=== PATIENT | male | born 1995 ===

== ENCOUNTER 2017-05-11 19:37 | Inpatient (IN) | payer SELFPAY ==
[2017-05-11] MEDS ORDERED: Sodium Chloride 0.9% 1,000 ML IV ONE (20:51)
[2017-05-11] MEDS ORDERED: Sodium Chloride 0.9% 1,000 ML ONE (20:57)
[2017-05-11 21:02] LABS: BASO # 0.1 K/uL (0.0-0.2); BASO % 0.4 % (0.0-2.0); HEMATOCRIT 45.8 % (35.0-51.0); LYMPH # 1.5 K/uL (1.0-4.3); MEAN CELL VOLUME 84.2 fL (80.0-94.0); MEAN CORPUSCULAR HEMOGLOBIN 27.6 pg (27.0-31.0); MEAN CORPUSCULAR HGB CONC 32.8 g/dL (33.0-37.0); MEAN PLATELET VOLUME 9.5 fL (7.2-11.7); MONO # 0.9 K/uL (0.0-0.8); MONO % 4.5 % (0.0-10.0); PLATELET COUNT 304 K/uL (130-400); RED CELL DISTRIBUTION WIDTH 13.6 % (11.5-14.5); WHITE BLOOD COUNT 20.8 K/uL (4.8-10.8)
[2017-05-11 21:09] LABS: CHLORIDE 102 mmol/L (98-107); POTASSIUM 3.9 mmol/L (3.6-5.2); RBC URINE 1 /hpf (0-3); SODIUM 141 mmol/L (132-148); URINE BILIRUBIN NEGATIVE (NEGATIVE); URINE BLOOD NEGATIVE (NEGATIVE); URINE COLOR Yellow (YELLOW); URINE GLUCOSE (UA) NORMAL (Normal); URINE KETONE NEGATIVE (NEGATIVE); URINE LEUKOCYTE ESTERASE NEG Leu/uL (Negative); URINE PROTEIN NEGATIVE (NEGATIVE); URINE UROBILINOGEN NORMAL mg/dL (0.2-1.0); WBC URINE < 1 /hpf (0-5)
[2017-05-11 21:11] LABS: BILIRUBIN,TOTAL 0.8 mg/dL (0.2-1.3); CARBON DIOXIDE 23 mmol/L (22-30); GFR AFRICAN-AMERICAN > 60
[2017-05-11 21:12] LABS: ALB/GLOB RATIO 1.6 (1.0-2.1); ALKALINE PHOSPHATASE 82 U/L (38-126); ALT/SGPT 41 U/L (21-72); AST/SGOT 32 U/L (17-59); BLOOD UREA NITROGEN 14 mg/dL (9-20); CALCIUM 9.4 mg/dl (8.6-10.4); GLUCOSE,RANDOM 112 mg/dL (75-110)
[2017-05-11] MEDS ORDERED: Morphine 4 MG/ML VIAL ONE ×2 (21:27→23:02)
[2017-05-11] MEDS ORDERED: Iohexol 350mg/ml 100 ML ONE (21:48)
[2017-05-11 22:43] LABS: NEUTROPHIL 83 % (50-75); REACTIVE LYMPHOCYTES 4 % (0-0); TOTAL CELLS COUNTED 100
[2017-05-11] MEDS ORDERED: Piperacillin/Tazobact 3.375 gm 100 ML IVPB STA (22:43)
[2017-05-11 22:45] LABS: LARGE PLATELETS PRESENT; SMUDGE CELLS PRESENT
--- NOTE | 2017-05-11 22:49 | C.PDOC ---
Time Seen by Provider: 05/11/17 20:41 Chief Complaint (Nursing): Abdominal Pain History Per: Patient Onset/Duration Of Symptoms: Hrs (since this morning) Current Symptoms Are (Timing): Still Present Severity: Moderate Location Of Pain/Discomfort: RLQ, LLQ, Periumbilical, Suprapubic Radiation Of Pain To:: None Quality Of Discomfort: "Pain" Associated Symptoms: Nausea, Vomiting Alleviating Factors: None Last Bowel Movement: Today Additional History Per: Prior Records Past Medical History Reviewed: Historical Data, Nursing Documentation, Vital Signs Vital Signs: Last Vital Signs Temp 98.9 F 05/11/17 21:37 Pulse 91 H 05/11/17 19:51 Resp 16 05/11/17 19:51 BP 135/67 05/11/17 21:37 Pulse Ox 99 05/11/17 19:51 - Medical History PMH: No Chronic Diseases Surgical History: No Surg Hx Family History: States: Unknown Family Hx - Social History Hx Alcohol Use: No Hx Substance Use: No - Immunization History Hx Tetanus Toxoid Vaccination: No Hx Influenza Vaccination: No Hx Pneumococcal Vaccination: No Review Of Systems Except As Marked, All Systems Reviewed And Found Negative. Constitutional: Negative for: Weakness Cardiovascular: Negative for: Chest Pain Respiratory: Negative for: Shortness of Breath Gastrointestinal: Positive for: Nausea, Vomiting, Abdominal Pain. Negative for : Diarrhea, Constipation, Melena, Hematochezia, Hematemesis Genitourinary: Negative for: Dysuria, Scrotal Pain Musculoskeletal: Negative for: Neck Pain, Back Pain Skin: Negative for: Rash Neurological: Negative for: Weakness, Numbness Physical Exam - Physical Exam Appears: Non-toxic, No Acute Distress Skin: Normal Color, Warm, Dry, No Rash Head: Atraumatic, Normacephalic Eye(s): bilateral: Normal Inspection, PERRL, EOMI Neck: Normal ROM, Supple Cardiovascular: Rhythm Regular Respiratory: Normal Breath Sounds, No Accessory Muscle Use Gastrointestinal/Abdominal: Soft, Tenderness (lower abdomen), Guarding Back: No CVA Tenderness Male Genital: No Testicular Tenderness, No Testicular Swelling, No Inguinal Tenderness, No Inguinal Swelling, No Scrotal Swelling Extremity: Normal ROM Neurological/Psych: Oriented x3, Normal Motor, Normal Sensation ED Course And Treatment - Laboratory Results Result Diagrams: 05/11/17 20:56 05/11/17 20:56 Lab Interpretation: Abnormal Interpretation Of Abnormal: Leukocytosis with left shift O2 Sat by Pulse Oximetry: 99 Pulse Ox Interpretation: Normal - CT Scan/US CT abd/pelv Other Rad Studies (CT/US): Read By Radiologist, Radiology Report Reviewed CT/US Interpretation: Positive appendicitis Progress - Interventions Interventions:: Observation, Intravenous fluid - Medications Administered Intravenous: Antiemetic, H-2 nilo, Opiate - Data Reviewed Data Reviewed: Lab, Diagnostic imaging, Old records - Patient Status Patient status: Partially improved - Continuity of Care Discussed patient case with:: Patient, Family-HIPPA compliant, ED Nurse Discussed pt. case with risk management consultant/specialty: General Surgery - Patient Plan Patient Plan: Admission Disposition Discussed With : Isabella Quinones (Surgery) Comment: She accepted pt on her service. Pt also signed out to the surgical oncologist media sales consultant. Doctor Will See Patient In The: Hospital Counseled Patient/Family Regarding: Studies Performed, Diagnosis - Disposition Disposition: HOSPITALIZED Disposition Time: 22:52 Condition: GUARDED - Clinical Impression Clinical Impression: Acute appendicitis
[2017-05-11] MEDS ORDERED: Piperacillin/Tazobact 3.375 gm 100 ML IVPB ONE (23:02)
[2017-05-11 23:33] LABS: INR 1.1
--- NOTE | 2017-05-12 00:44 | CP.PCM.HP ---
History of Present Illness - History of Present Illness History of Present Illness: H&P Surgery- Dr. Quinones 22M no significant PMH presented to [facility] ED with worsening abdominal pain that started this morning localized to the midepigastrum and migrated to the RLQ. Pt had a similar episode 8mo ago that spontaneously resolved. Pt had 4 episodes of non-bloody non-bilious vomiting since this morning, no episodes of diarrhea. Pt denies fevers, CP/SOB, numbness or tingling in the extremities. PMH: none PSH: none ALL: NKDA Present on Admission - Present on Admission Any Indicators Present on Admission: No Review of Systems - Review of Systems All systems: reviewed and no additional remarkable complaints except - Constitutional Constitutional: As Per HPI Past Patient History - Past Social History Smoking Status: Never Smoked - PSYCHIATRIC Hx Substance Use: No Meds Allergies/Adverse Reactions: Allergies Allergy/AdvReac Type Severity Reaction Status Date / Time No Known Allergies Allergy Verified 05/11/17 19:54 Physical Exam - Constitutional Appears: No Acute Distress - Head Exam Head Exam: ATRAUMATIC - Eye Exam Eye Exam: EOMI - Respiratory Exam Respiratory Exam: NORMAL BREATHING PATTERN. absent: Accessory Muscle Use, Rales , Rhonchi - Cardiovascular Exam Cardiovascular Exam: +S1, +S2 - GI/Abdominal Exam GI & Abdominal Exam: Guarding, Soft, Tenderness. absent: Distended, Hernia, Rigid Additional comments: TTP +rovsings + mcburney + rebound tenderness - obturator sign - Neurological Exam Neurological exam: Alert, Oriented x3 - Skin Skin Exam: Intact, Normal Color Results - Vital Signs Recent Vital Signs: Last Vital Signs Temp 99.1 F 05/11/17 23:28 Pulse 89 05/11/17 23:28 Resp 20 05/11/17 23:28 BP 138/74 05/11/17 23:28 Pulse Ox 98 05/11/17 23:28 - Labs Result Diagrams: 05/11/17 20:56 05/11/17 20:56 Assessment & Plan - Assessment and Plan (Free Text) Assessment: 22M RLQ pain Plan: - NPO - GI/DVTppx - IVF/abx - Pain control - plan for surgery - further recs per Dr. Joni Carmen PGY1
[2017-05-12] MEDS: HYDROmorphone 1 mg/ml ISec IVP PRN ×2 (01:13→06:45)
[2017-05-12] MEDS: Lactated Ringer's 1,000 ML IV SCH ×2 (01:17→09:47)
[2017-05-12] MEDS: Piperacillin/Tazobact 3.375 GM in Sodium Chloride 100 ML IVPB SCH ×3 (06:43→18:25)
[2017-05-12 08:10] LABS: BASO # 0.1 K/uL (0.0-0.2); BASO % 0.5 % (0.0-2.0); EOS % 0.1 % (0.0-4.0); HEMATOCRIT 41.9 % (35.0-51.0); LYMPH # 2.7 K/uL (1.0-4.3); LYMPH % 14.3 % (20.0-40.0); MEAN CELL VOLUME 83.7 fL (80.0-94.0); MEAN CORPUSCULAR HEMOGLOBIN 27.6 pg (27.0-31.0); MEAN PLATELET VOLUME 9.5 fL (7.2-11.7); MONO # 1.6 K/uL (0.0-0.8); MONO % 8.3 % (0.0-10.0); NRBC % 0.1 % (0.0-2.0); RED CELL DISTRIBUTION WIDTH 13.8 % (11.5-14.5); WHITE BLOOD COUNT 18.7 K/uL (4.8-10.8)
--- NOTE | 2017-05-12 08:35 | CT ---
PROCEDURE: CT Abdomen and Pelvis with contrast HISTORY: abd pain, vomiting, Leukocytosis COMPARISON: None available. TECHNIQUE: Contrast dose: 100 mL Omnipaque 350 Radiation dose: Total exam DLP = 957.60 mGy-cm. This CT exam was performed using one or more of the following dose reduction techniques: Automated exposure control, adjustment of the mA and/or kV according to patient size, and/or use of iterative reconstruction technique. FINDINGS: LOWER THORAX: No visible consolidation, pleural effusion, or pneumothorax. LIVER: Unremarkable. GALLBLADDER AND BILE DUCTS: Unremarkable. PANCREAS: Unremarkable. SPLEEN: Unremarkable. ADRENALS: Unremarkable. KIDNEYS AND URETERS: The kidneys enhance symmetrically. No hydronephrosis or obstructing calculus identified. VASCULATURE: No aortic aneurysm. BOWEL: Stomach is nondistended. Lack of oral contrast limits evaluation for bowel pathology. Bowel loops appear within normal limits of caliber without evidence of obstruction. APPENDIX: Dilated fluid-filled appendix measures maximally 12 mm in diameter. No intraluminal air evident. Probable tiny calcifications are seen. Wall hyperemia noted. Mild adjacent inflammatory stranding. PERITONEUM: No significant free fluid. No definite free air. LYMPH NODES: No bulky adenopathy identified. BLADDER: Unremarkable. REPRODUCTIVE: Unremarkable. BONES: No acute fracture. OTHER FINDINGS: None. IMPRESSION: Dilated fluid-filled appendix measures maximally 12 mm in diameter. No intraluminal air evident. Probable tiny calcifications are seen. Wall hyperemia noted. Mild adjacent inflammatory stranding. Constellation of findings consistent with acute appendicitis. Correlate clinically.
[2017-05-12 08:56] LABS: CHLORIDE 103 mmol/L (98-107); POTASSIUM 3.6 mmol/L (3.6-5.2); SODIUM 139 mmol/L (132-148)
[2017-05-12 08:58] LABS: ALB/GLOB RATIO 1.5 (1.0-2.1); AST/SGOT 22 U/L (17-59); CARBON DIOXIDE 23 mmol/L (22-30); GFR AFRICAN-AMERICAN > 60; TOTAL PROTEIN 6.9 g/dL (6.3-8.3)
[2017-05-12 08:59] LABS: ALKALINE PHOSPHATASE 68 U/L (38-126); ALT/SGPT 35 U/L (21-72); BLOOD UREA NITROGEN 10 mg/dL (9-20); CALCIUM 8.7 mg/dl (8.6-10.4); GLUCOSE,RANDOM 97 mg/dL (75-110)
[2017-05-12] MEDS ORDERED: Lactated Ringer's 1,000 ML IV ONE ×2 (13:55→15:14)
[2017-05-12] MEDS ORDERED: Midazolam 2 MG/2 ML VIAL ONE (13:57)
[2017-05-12] MEDS ORDERED: Propofol 10 mg/ml Inj (20 ML) ONE (13:59)
[2017-05-12] MEDS ORDERED: Succinylcholine Chloride 20 mg/ml Syr (5 ml) IV ONE (14:00)
[2017-05-12] MEDS ORDERED: Rocuronium 10 mg/ml (5 ml) ONE (14:16)
[2017-05-12] MEDS ORDERED: Oxycodone/Acetaminophen 5/325 mg Tab PO PRN (15:14)
--- NOTE | 2017-05-12 15:21 | PCM.SURG1 ---
Surgeon's Initial Post Op Note - Surgeon's Notes Surgeon: Dr. Quinones Break Up Worker: Dr. Rangel PGY3, PGY1 Pre-Operative Diagnosis: Acute Appendicitis Operative Findings: Phlegmenous Appendicitis Post-Operative Diagnosis: As Above Operation Performed: laparoscopic appendectomy Specimen/Specimens Removed: appendix Estimated Blood Loss: EBL {In ML}: 5 Date of Surgery/Procedure: 05/12/17 Time of Surgery/Procedure: 14:15
[2017-05-12] MEDS ORDERED: Lactated Ringer's 1,000 ML IV SCH (15:30)
[2017-05-12] MEDS ORDERED: Sodium Chloride 0.9% 1,000 ML IV SCH (15:45)
--- NOTE | 2017-05-12 19:13 | CP.PCM.HP ---
Past Patient History - Past Medical History & Family History Past Medical History?: No - Past Social History Smoking Status: Never Smoked - MUSCULOSKELETAL/RHEUMATOLOGICAL Hx Falls: No - PSYCHIATRIC Hx Substance Use: No Meds Allergies/Adverse Reactions: Allergies Allergy/AdvReac Type Severity Reaction Status Date / Time No Known Allergies Allergy Verified 05/11/17 19:54 Physical Exam - Constitutional Appears: Well - Head Exam Head Exam: ATRAUMATIC, NORMAL INSPECTION, NORMOCEPHALIC - Eye Exam Eye Exam: EOMI, Normal appearance, PERRL Pupil Exam: NORMAL ACCOMODATION, PERRL - ENT Exam ENT Exam: Mucous Membranes Moist, Normal Exam - Neck Exam Neck exam: Positive for: Normal Inspection - Respiratory Exam Respiratory Exam: Decreased Breath Sounds - Cardiovascular Exam Cardiovascular Exam: REGULAR RHYTHM, +S1, +S2 - GI/Abdominal Exam GI & Abdominal Exam: Diminished Bowel Sounds, Soft - Rectal Exam Rectal Exam: Deferred Results - Vital Signs Recent Vital Signs: Last Vital Signs Temp 98.4 F 05/12/17 17:45 Pulse 85 05/12/17 17:45 Resp 20 05/12/17 17:45 BP 107/62 05/12/17 17:45 Pulse Ox 98 05/12/17 17:45 - Labs Result Diagrams: 05/12/17 08:01 05/12/17 08:01 Labs: Laboratory Results - last 24 hr 05/12/17 05/12/17 05/12/17 00:13 00:46 08:01 WBC 18.7 H RBC 5.00 Hgb 13.8 Hct 41.9 MCV 83.7 MCH 27.6 MCHC 33.0 RDW 13.8 Plt Count 270 MPV 9.5 Neut % (Auto) 76.8 H Lymph % (Auto) 14.3 L [place] % (Auto) 8.3 Eos % (Auto) 0.1 Baso % (Auto) 0.5 Neut # 14.3 H Lymph # 2.7 [place] # 1.6 H Eos # 0.0 Baso # 0.1 PT 11.9 INR 1.1 APTT 33 Sodium Potassium Chloride Carbon Dioxide Anion Gap BUN Creatinine Est GFR ( Amer) Est GFR (Non-Af Amer) Random Glucose Calcium Total Bilirubin AST ALT Alkaline Phosphatase Total Protein Albumin Globulin Albumin/Globulin Ratio Blood Type O POSITIVE Antibody Screen Negative 05/12/17 08:01 WBC RBC Hgb Hct MCV MCH MCHC RDW Plt Count MPV Neut % (Auto) Lymph % (Auto) [place] % (Auto) Eos % (Auto) Baso % (Auto) Neut # Lymph # [place] # Eos # Baso # PT INR APTT Sodium 139 Potassium 3.6 Chloride 103 Carbon Dioxide 23 Anion Gap 17 BUN 10 Creatinine 0.9 Est GFR ( Amer) > 60 Est GFR (Non-Af Amer) > 60 Random Glucose 97 Calcium 8.7 Total Bilirubin 1.0 AST 22 ALT 35 Alkaline Phosphatase 68 Total Protein 6.9 Albumin 4.1 Globulin 2.8 Albumin/Globulin Ratio 1.5 Blood Type Antibody Screen
[2017-05-13] MEDS: Piperacillin/Tazobact 3.375 GM in Sodium Chloride 100 ML IVPB SCH ×2 (00:41→05:36)
[2017-05-13 06:35] LABS: BASO # 0.1 K/uL (0.0-0.2); BASO % 0.4 % (0.0-2.0); EOS # 0.1 K/uL (0.0-0.7); EOS % 0.5 % (0.0-4.0); HEMATOCRIT 40.2 % (35.0-51.0); LYMPH % 19.8 % (20.0-40.0); MEAN CELL VOLUME 84.4 fL (80.0-94.0); MEAN CORPUSCULAR HEMOGLOBIN 28.2 pg (27.0-31.0); MEAN CORPUSCULAR HGB CONC 33.4 g/dL (33.0-37.0); MEAN PLATELET VOLUME 8.7 fL (7.2-11.7); MONO # 1.1 K/uL (0.0-0.8); MONO % 7.5 % (0.0-10.0); RED CELL DISTRIBUTION WIDTH 13.9 % (11.5-14.5); WHITE BLOOD COUNT 14.9 K/uL (4.8-10.8)
[2017-05-13 07:23] LABS: ALB/GLOB RATIO 1.1 (1.0-2.1); ALKALINE PHOSPHATASE 67 U/L (38-126); ALT/SGPT 36 U/L (21-72); AST/SGOT 20 U/L (17-59); BILIRUBIN,TOTAL 0.8 mg/dL (0.2-1.3); BLOOD UREA NITROGEN 7 mg/dL (9-20); CARBON DIOXIDE 27 mmol/L (22-30); CHLORIDE 102 mmol/L (98-107); GFR AFRICAN-AMERICAN > 60; GLUCOSE,RANDOM 98 mg/dL (75-110); POTASSIUM 3.7 mmol/L (3.6-5.2); SODIUM 142 mmol/L (132-148); TOTAL PROTEIN 6.7 g/dL (6.3-8.3)
--- NOTE | 2017-05-13 09:19 | CP.PCM.DIS ---
Provider - Provider Date of Admission: 05/11/17 23:15 Attending physician: Kendra Ruffin MD Time Spent in preparation of Discharge (in minutes): 10 Diagnosis - Discharge Diagnosis (1) Acute appendicitis Status: Resolved Hospital Course - Lab Results Lab Results: Most Recent Lab Values WBC 14.9 K/uL (4.8-10.8) H 05/13/17 06:18 RBC 4.76 Mil/uL (4.40-5.90) 05/13/17 06:18 Hgb 13.4 g/dL (12.0-18.0) 05/13/17 06:18 Hct 40.2 % (35.0-51.0) 05/13/17 06:18 MCV 84.4 fL (80.0-94.0) 05/13/17 06:18 MCH 28.2 pg (27.0-31.0) 05/13/17 06:18 MCHC 33.4 g/dL (33.0-37.0) 05/13/17 06:18 RDW 13.9 % (11.5-14.5) 05/13/17 06:18 Plt Count 254 K/uL (130-400) 05/13/17 06:18 MPV 8.7 fL (7.2-11.7) 05/13/17 06:18 Neut % (Auto) 71.8 % (50.0-75.0) 05/13/17 06:18 Lymph % (Auto) 19.8 % (20.0-40.0) L 05/13/17 06:18 [place] % (Auto) 7.5 % (0.0-10.0) 05/13/17 06:18 Eos % (Auto) 0.5 % (0.0-4.0) 05/13/17 06:18 Baso % (Auto) 0.4 % (0.0-2.0) 05/13/17 06:18 Neut # 10.7 K/uL (1.8-7.0) H 05/13/17 06:18 Lymph # 3.0 K/uL (1.0-4.3) 05/13/17 06:18 [place] # 1.1 K/uL (0.0-0.8) H 05/13/17 06:18 Eos # 0.1 K/uL (0.0-0.7) 05/13/17 06:18 Baso # 0.1 K/uL (0.0-0.2) 05/13/17 06:18 Neutrophils % (Manual) 83 % (50-75) H 05/11/17 20:56 Band Neutrophils % 4 % (0-2) H 05/11/17 20:56 Lymphocytes % (Manual) 6 % (20-40) L 05/11/17 20:56 Reactive Lymphs % 4 % (0-0) H 05/11/17 20:56 Monocytes % (Manual) 3 % (0-10) 05/11/17 20:56 Hypersegmented Polys Present 05/11/17 20:56 Smudge Cells Present 05/11/17 20:56 Toxic Granulation Present 05/11/17 20:56 Platelet Estimate Normal (NORMAL) 05/11/17 20:56 Large Platelets Present 05/11/17 20:56 Hypochromasia (manual) Moderate 05/11/17 20:56 Poikilocytosis (manual Slight 05/11/17 20:56 Anisocytosis (manual) Slight 05/11/17 20:56 PT 11.9 SECONDS (9.7-12.2) 05/12/17 00:46 INR 1.1 05/12/17 00:46 APTT 33 SECONDS (21-34) 05/12/17 00:46 Sodium 142 mmol/L (132-148) 05/13/17 06:18 Potassium 3.7 mmol/L (3.6-5.2) 05/13/17 06:18 Chloride 102 mmol/L (98-107) 05/13/17 06:18 Carbon Dioxide 27 mmol/L (22-30) 05/13/17 06:18 Anion Gap 16 (10-20) 05/13/17 06:18 BUN 7 mg/dL (9-20) L 05/13/17 06:18 Creatinine 0.9 MG/DL (0.8-1.5) 05/13/17 06:18 Est GFR ( Amer) > 60 05/13/17 06:18 Est GFR (Non-Af Amer) > 60 05/13/17 06:18 Random Glucose 98 mg/dL (75-110) 05/13/17 06:18 Calcium 9.0 mg/dl (8.6-10.4) 05/13/17 06:18 Total Bilirubin 0.8 mg/dL (0.2-1.3) 05/13/17 06:18 AST 20 U/L (17-59) 05/13/17 06:18 ALT 36 U/L (21-72) 05/13/17 06:18 Alkaline Phosphatase 67 U/L (38-126) 05/13/17 06:18 Total Protein 6.7 g/dL (6.3-8.3) 05/13/17 06:18 Albumin 3.5 g/dL (3.5-5.0) 05/13/17 06:18 Globulin 3.2 gm/dL (2.2-3.9) 05/13/17 06:18 Albumin/Globulin Ratio 1.1 (1.0-2.1) 05/13/17 06:18 Lipase 40 U/L (23-300) 05/11/17 20:56 Urine Color Yellow (YELLOW) 05/11/17 20:56 Urine Clarity Clear (Clear) 05/11/17 20:56 Urine pH 5.0 (5.0-8.0) 05/11/17 20:56 Ur Specific [place] 1.025 (1.003-1.030) 05/11/17 20:56 Urine Protein Negative mg/dL (NEGATIVE) 05/11/17 20:56 Urine Glucose (UA) Normal mg/dL (Normal) 05/11/17 20:56 Urine Ketones Negative mg/dL (NEGATIVE) 05/11/17 20:56 Urine Blood Negative (NEGATIVE) 05/11/17 20:56 Urine Nitrate Negative (NEGATIVE) 05/11/17 20:56 Urine Bilirubin Negative (NEGATIVE) 05/11/17 20:56 Urine Urobilinogen Normal mg/dL (0.2-1.0) 05/11/17 20:56 Ur Leukocyte Esterase Neg [place]/uL (Negative) 05/11/17 20:56 Urine WBC (Auto) < 1 /hpf (0-5) 05/11/17 20:56 Urine RBC (Auto) 1 /hpf (0-3) 05/11/17 20:56 Blood Type O POSITIVE 05/12/17 00:13 Antibody Screen Negative 05/12/17 00:13 - Hospital Course Hospital Course: 22 yo M admitted to the hospital 05/11 with acute appendicitis. Taken to OR the following day for laparoscopic appendectomy. Pt did well postoperatively. On POD #1 patient was tolerating regular diet, pain well controlled, ambulating. Patient was clear for discharge home and provided with instructions to f/u in office in 1 week. Discharge Exam - Head Exam Head Exam: ATRAUMATIC, NORMAL INSPECTION, NORMOCEPHALIC - Eye Exam Eye Exam: Normal appearance - Respiratory Exam Respiratory Exam: NORMAL BREATHING PATTERN. absent: Respiratory Distress - GI/Abdominal Exam GI & Abdominal Exam: Soft. absent: Distended, Firm, Guarding, Rebound, Rigid ( incisions c/d/i), Tenderness - Neurological Exam Neurological exam: Alert, Oriented x3 - Psychiatric Exam Psychiatric exam: Normal Affect, Normal Mood - Skin Skin Exam: Dry, Intact Discharge Plan - Discharge Medications Prescriptions: oxyCODONE/Acetaminophen [Percocet 5/325 mg Tab] 1 tab PO Q6H PRN #15 tab PRN Reason: Pain, Mild (1-3) - Follow Up Plan Condition: GUARDED Disposition: HOME/ ROUTINE Additional Instructions: F/U with Dr. Quinones in office in 1 week. Resume Regular diet, light activities. May remove dressings and shower. No soaking/bathing. No heavy lifting >10lbs for 4 weeks. Take percocet PRN for pain, transition to Motrin or Tylenol in 2-3 days. Referrals: Isabella Quinones MD [Staff Provider] -
[2017-05-13] MEDS ORDERED: Pneumococcal 23-Valent Vaccine IM ONE (10:15)
[2017-05-13 10:57] VITALS: BP 125/79; PULSE 98; RESP 22; TEMP 98.7; O2SAT 96
--- NOTE | 2017-05-13 12:40 | OP ---
PROCEDURE DATE: 05/12/2017 SURGEON: Dr. Quinones. OPTICAL SALES ASSOCIATE: with some purulent exudate noted on the exterior surface, and the appendix was grasped and elevated and the mesoappendix was dissected. The mesoappendix was divided with an endo ELLE stapler, and the appendix was divided close to the cecum using the Endo ELLE stapler. The appendix was placed in a specimen retrieval bag and removed via the 12 mm port site. The right gutter and pelvis were irrigated and suctioned. The pneumoperitoneum was released, and the trocars were removed. The umbilical and 12 mm port sites were closed with figure-of-8 fascial sutures of 0-Vicryl. All incisions were closed with 4-0 Monocryl subcuticular sutures and Steri-Strips. Dry sterile dressings were applied. The patient tolerated the procedure well and transferred to the recovery room in stable condition. ESTIMATED BLOOD LOSS: From the procedure was 10 mL. Isabella Quinones MD [email or web address]
== END 2017-05-13 11:08 | disposition home or self-care (01) | DRG 343 ==
LOC: C.ER 19:37 → C.9E 23:15 → C.6T 23:43
PROVIDERS: ADMIT Internal Medicine Nephrology; ATTEND Internal Medicine Nephrology
PROC: 0DTJ4ZZ Resection of Appendix, Percutaneous Endoscopic Approach (ICD-10-PCS; principal; 2017-05-12 07:45)
DX: K35.89 Other acute appendicitis (principal)